=== PATIENT | female | born 1965 | race African-American/Black ===

== ENCOUNTER 2024-10-24 15:08 | Emergency (ER) | payer OTHER ==
[~2024-10-24] VITALS: Ht 170.2 cm; Wt 95.0 kg
[~2024-10-24 15:08] MED LIST: AMOX1TAB16 MT; AMPH5TAB PO; BUDE6HFA INH; FLUT15.844 BOTHNSTRLS; HYDR-3992 PO; LEVO50TA8 MT
[2024-10-24 15:31] VITALS: O2SAT 97
[2024-10-24] MEDS: KETOROLAC 15MG/ML VIAL IM ONE (18:25)
[2024-10-24] MEDS ORDERED: NAPR-681 MT (18:50)
[2024-10-24 19:06] VITALS: BP 146/100; PULSE 95; RESP 16; TEMP 37.2; O2SAT 100
== END 2024-10-24 19:07 | disposition home or self-care (01) ==
LOC: ER 15:08
DX: S82.042A Displaced comminuted fracture of left patella, initial encounter for closed fracture (principal); M25.511 Pain in right shoulder; Z79.890 Hormone replacement therapy; Z79.51 Long term (current) use of inhaled steroids; Z90.49 Acquired absence of other specified parts of digestive tract; Z79.1 Long term (current) use of non-steroidal anti-inflammatories (NSAID); J45.909 Unspecified asthma, uncomplicated; W01.0XXA Fall on same level from slipping, tripping and stumbling without subsequent striking against object, initial encounter; Y93.01 Activity, walking, marching and hiking; Y92.89 Other specified places as the place of occurrence of the external cause; Y99.8 Other external cause status
CPT/HCPCS: 73560; 29105; 29505; 96372; 99283; J1885; Z7610; A4565; A4606